=== PATIENT | female | born 1995 | race Caucasian/White ===

== ENCOUNTER 2018-01-16 22:24 | Emergency (ER) | payer BC ==
[2018-01-17] MEDS: KETOROLAC 30 MG INJ IM (01:48)
== END 2018-01-17 02:05 | disposition home or self-care (01) ==
LOC: FTE 22:24
DX: H53.8 Other visual disturbances (principal); R40.2412 Glasgow coma scale score 13-15, at arrival to emergency department; F07.81 Postconcussional syndrome
CPT/HCPCS: 81025; 96374; 99284-25